=== PATIENT | male | born 1990 | race Caucasian/White ===

== ENCOUNTER 2017-06-06 13:55 | Emergency (ER) | payer OTHER ==
[~2017-06-06] VITALS: Ht 182.9 cm; Wt 64.9 kg
--- NOTE | 2017-06-06 14:00 | NUR ---
BLOOD IN STOOL x 1 DAY. . NAD NOTED, VSS, RESP EVEN AND UNLABORED, PT WAS PUT ON A MONITOR, WAITING FOR MD MI.
[2017-06-06 15:02] LABS: BASOPHILS % (AUTO) 0.6 % (0.0-2.0); EOSINOPHILS % (AUTO) 0.6 % (0.0-6.0); HEMATOCRIT 46 % (39-51); HEMOGLOBIN 15.5 g/dL (13.5-17.5); LYMPHOCYTES # (AUTO) 2.2 /CMM (0.8-4.8); LYMPHOCYTES % (AUTO) 32.4 % (20.0-44.0); MEAN CORPUSCULAR HEMOGLOBIN 31 PG (26.0-33.0); MEAN CORPUSCULAR HGB CONC 34 g/dl (31.0-36.0); MEAN CORPUSCULAR VOLUME 91 fL (80-96); MONOCYTES # (AUTO) 0.7 /CMM (0.1-1.30); MONOCYTES % (AUTO) 9.9 % (2.0-12.0); NEUTROPHILS % (AUTO) 56.5 % (43.0-81.0); PLATELET COUNT (AUTO) 270 /CMM (150-450); RDW COEFFICIENT OF VARIATION 11.9 (11.5-15.0); RED BLOOD CELL COUNT(AUTO) 5.03 MIL/uL (4.5-6.0); WHITE BLOOD COUNT (AUTO) 6.9 K/uL (4.3-11.0)
[2017-06-06 15:12] LABS: CALCIUM, SERUM 8.4 mg/dL (8.5-10.1); CREATININE 0.7 mg/dL (0.6-1.3); POTASSIUM 3.8 mmol/L (3.5-5.1)
[2017-06-06 15:18] LABS: ALBUMIN 3.8 g/dL (3.4-5.0); BILIRUBIN,TOTAL 0.6 mg/dL (0.2-1.0); TOTAL PROTEIN, SERUM 6.8 g/dL (6.4-8.2)
--- NOTE | 2017-06-06 15:30 | NUR ---
STOOL SENT TO LAB
[2017-06-06 16:10] VITALS: BP 135/91
--- NOTE | 2017-06-06 16:10 | NUR ---
Patient discharged to home in stable condition. Written and verbal after care instructions given. Patient verbalizes understanding of instruction. Prescription given.
== END 2017-06-06 16:18 | disposition home or self-care (01) ==
LOC: ER 13:57
DX: K64.4 Residual hemorrhoidal skin tags (principal); K92.1 Melena; Z88.8 Allergy status to other drugs, medicaments and biological substances
CPT/HCPCS: 36415; 80053; 85025; 87015; 87045; 87427 ×3; 89055; 99284; A4606; Z7610